=== PATIENT | female | born 1940 | race Hispanic/Latino ===

== ENCOUNTER 2016-03-10 16:07 | Inpatient (IN) | payer OTHER ==
[~2016-03-10] VITALS: Ht 157.5 cm; Wt 48.6 kg
[~2016-03-10 16:07] MED LIST: ATIVAN0.5 MG PO; CALCIUM500 M4 PO; CHOLESTEROL; COLACE100 MG PO; DRAMAMINE50 MG PO; GLIPIZIDE5 MG PO; GLYBURIDE5 MG PO; IBUPROFEN400 MG PO; LEVOTHYROXINE88 MCG PO; LEXAPRO10 MG PO; LIPITOR20 MG PO; LISINOPRIL10 MG PO; LITE COAT ASPI325 M1 PO; MAGIC MOUTHWASH; METFORMIN HCL1000 MG; METFORMIN HCL1000 MG PO; NEURONTIN300 MG PO; NORCO 5/3251 TABLET PO; PANTOPRAZOLE SO40 MG PO; PERCOCET 5/31 TABLET PO; POTASSIUM CHLO20 ME1 PO; PROCTOFOAM-HC10 GM PR; PROTONIX40 MG PO; ROXICODONE5 MG PO; SYNTHROID50 MCG PO; SYNTHROID88 MCG PO; TYLENOL EXTRA500 MG PO; TYLENOL WITH C1 EACH PO; ULTRAM50 MG PO; VICODIN 5-3001 EACH PO; ZESTORETIC 20-1 EAC1 PO; ZESTRIL,PRINIVI10 MG; ZOFRAN ODT4 MG PO
[2016-03-10 16:57] LABS: MCH 26.7 PG (29.0-34.0); MCHC 31.6 G/DL (30.0-36.0); MCV 84.5 FL (83-99); PLATELET COUNT 172 K/uL (156-360); RBC DIS.WIDTH-CV 18.6 % (11.8-14.6); RED BLOOD COUNT 3.67 M/uL (3.80-5.20); WHITE BLOOD COUNT 5.6 K/uL (4.1-10.2)
[2016-03-10 17:07] LABS: CHLORIDE 101 mEq/L (99-109); POTASSIUM 4.9 mEq/L (3.7-5.4); SODIUM 134 mEq/L (136-147)
[2016-03-10 17:09] LABS: GLUCOSE 247 mg/dL (70-99)
[2016-03-10 17:10] LABS: ANION GAP 10 MEQ/L (2-14)
[2016-03-10 17:13] LABS: GFR ESTIMATE (CALCULATED) > 59 mL/min/; UREA NITROGEN (BUN) 4 mg/dL (9-23)
[2016-03-10 18:54] LABS: ADD MIUA? YES; BILIRUBIN NEGATIVE; BLOOD NEGATIVE; COLOR YELLOW ((YELLOW)); GLUCOSE (STRIP) NEGATIVE; KETONES NEGATIVE; LEUKOCYTES SMALL; PROTEIN (STRIP) NEGATIVE; SPECIFIC GRAVITY 1.011 (1.000-1.030); UROBILINOGEN 0.2 MG/DL (0.2-1.0)
[2016-03-10 19:46] LABS: BACTERIA 3+; RED BLOOD CELLS 0-5 /HPF (0-5); UCUL ADDED? YES
[2016-03-10 19:47] LABS: CASTS NONE SEEN /LPF; CRYSTALS NONE SEEN; EPITHELIAL CELLS NONE SEEN; MUCUS NONE SEEN; NITRITE POSITIVE
[2016-03-10 22:58] LABS: HEMATOCRIT 28.1 % (36.0-46.0); MCH 26.3 PG (29.0-34.0); MCHC 31.3 G/DL (30.0-36.0); MCV 84.1 FL (83-99); PLATELET COUNT 151 K/uL (156-360); RBC DIS.WIDTH-CV 18.7 % (11.8-14.6); RBC DIS.WIDTH-SD 56.1 % (39-53); RED BLOOD COUNT 3.34 M/uL (3.80-5.20); WHITE BLOOD COUNT 5.2 K/uL (4.1-10.2)
[2016-03-11] VITALS (7 sets, daily range): BP systolic 124–167; BP diastolic 59–71
[2016-03-11 01:38] LABS: INTER. NORMALIZED RATIO 1.2; PROTHROMBIN TIME 12.5 (9.2-11.2); PTT 30.4 (25-32)
[2016-03-11 07:22] LABS: HEMATOCRIT 28.6 % (36.0-46.0); MCH 26.5 PG (29.0-34.0); MCHC 31.5 G/DL (30.0-36.0); MCV 84.1 FL (83-99); MEAN PLAT.VOLUME 10.7 uM^3 (9.5-12.4); PLATELET COUNT 155 K/uL (156-360); RBC DIS.WIDTH-CV 18.9 % (11.8-14.6); RBC DIS.WIDTH-SD 58.1 % (39-53); WHITE BLOOD COUNT 6.4 K/uL (4.1-10.2)
[2016-03-11 07:36] LABS: ANION GAP 8 MEQ/L (2-14); CHLORIDE 101 MEQ/L (99-109); GFR ESTIMATE (CALCULATED) > 59 mL/min/; SAMPLE HEMOLYSIS CHECK 0; SAMPLE ICTERIC CHECK 0; SAMPLE LIPEMIA CHECK 0; SODIUM 134 MEQ/L (136-147); UREA NITROGEN (BUN) 4 mg/dL (9-23)
[2016-03-11 07:38] LABS: GLUCOSE 116 mg/dL (70-99)
[2016-03-11 11:41] LABS: POINT-OF-CARE METER ID UU14149397
[2016-03-11 16:14] LABS: POINT-OF-CARE METER ID UU13113694
[2016-03-11 18:41] LABS: POINT-OF-CARE METER ID UU14149397
[2016-03-11 19:36] LABS: HEMATOCRIT 28.9 % (36.0-46.0); MCH 26.9 PG (29.0-34.0); MCHC 32.2 G/DL (30.0-36.0); MCV 83.5 FL (83-99); MEAN PLAT.VOLUME 11.6 uM^3 (9.5-12.4); PLATELET COUNT 159 K/uL (156-360); RBC DIS.WIDTH-SD 58.2 % (39-53); RED BLOOD COUNT 3.46 M/uL (3.80-5.20)
[2016-03-11 19:42] LABS: WHITE BLOOD COUNT 4.1 K/uL (4.1-10.2)
[2016-03-11 21:53] LABS: POINT-OF-CARE METER ID UU14149397
[2016-03-12] VITALS (7 sets, daily range): BP systolic 138–159; BP diastolic 64–76
[2016-03-12 06:00] LABS: HEMATOCRIT 26.4 % (36.0-46.0); MCH 26.3 PG (29.0-34.0); MCHC 31.4 G/DL (30.0-36.0); MCV 83.8 FL (83-99); MEAN PLAT.VOLUME 10.9 uM^3 (9.5-12.4); PLATELET COUNT 139 K/uL (156-360); RBC DIS.WIDTH-SD 58.1 % (39-53); RED BLOOD COUNT 3.15 M/uL (3.80-5.20); WHITE BLOOD COUNT 4.5 K/uL (4.1-10.2)
[2016-03-12 06:04] LABS: EOSINOPHIL (%) 2.6 % (0-5); EOSINOPHIL COUNT 0.1 K/uL (0-0.3); IMMATURE GRANULOCYTE (%) 0.2 % (0.0-0.7); LYMPHOCYTE COUNT 1.5 K/uL (1.0-2.8); MONOCYTE (%) 12.1 % (3-12); MONOCYTE COUNT 0.6 K/uL (0-0.8); NEUTROPHIL COUNT 2.4 K/uL (1.8-6.4)
[2016-03-12 06:29] LABS: ANION GAP 7 MEQ/L (2-14); CHLORIDE 103 MEQ/L (99-109); GFR ESTIMATE (CALCULATED) > 59 mL/min/; POTASSIUM 3.9 MEQ/L (3.7-5.4); SAMPLE HEMOLYSIS CHECK 0; SAMPLE ICTERIC CHECK 0; SAMPLE LIPEMIA CHECK 0; SODIUM 135 MEQ/L (136-147); UREA NITROGEN (BUN) 5 mg/dL (9-23)
[2016-03-12 06:38] LABS: GLUCOSE 85 mg/dL (70-99)
[2016-03-12 18:04] LABS: HEMATOCRIT 32.7 % (36.0-46.0); MCV 84.1 FL (83-99)
[2016-03-12] MEDS ORDERED: AMPICILLIN TRI500 MG PO (19:06)
[2016-03-12] MEDS ORDERED: POLYETHYLENE GL17 GM PO (19:07)
[2016-03-12] MEDS ORDERED: METFORMIN HCL1000 MG PO (19:08)
== END 2016-03-12 21:27 | disposition home or self-care (01) | DRG 394 ==
LOC: EME 16:07 → EDOF 22:02 → 3EAST 22:02
PROVIDERS: Emergency Medicine; Family Medicine; Family Medicine Sports Medicine; Specialist
DX: K55.8 Other vascular disorders of intestine (principal); K64.8 Other hemorrhoids; I85.00 Esophageal varices without bleeding; B37.81 Candidal esophagitis; Z85.09 Personal history of malignant neoplasm of other digestive organs; C79.51 Secondary malignant neoplasm of bone; C78.7 Secondary malignant neoplasm of liver and intrahepatic bile duct; N39.0 Urinary tract infection, site not specified; B96.20 Unspecified Escherichia coli [E. coli] as the cause of diseases classified elsewhere; K29.70 Gastritis, unspecified, without bleeding; K31.7 Polyp of stomach and duodenum; K76.6 Portal hypertension; K74.60 Unspecified cirrhosis of liver; D50.0 Iron deficiency anemia secondary to blood loss (chronic); D63.0 Anemia in neoplastic disease; R10.84 Generalized abdominal pain; E87.6 Hypokalemia; I10 Essential (primary) hypertension; E03.9 Hypothyroidism, unspecified; E78.5 Hyperlipidemia, unspecified; K21.9 Gastro-esophageal reflux disease without esophagitis; E11.9 Type 2 diabetes mellitus without complications; F32.9 Major depressive disorder, single episode, unspecified; M81.0 Age-related osteoporosis without current pathological fracture; Z79.84 Long term (current) use of oral hypoglycemic drugs; Z79.899 Other long term (current) drug therapy
CPT/HCPCS: 36415; 71010; 74177; 80048; 80053; 81003; 82150; 82948; 85007; 85014; 85018; 85025; 85027; 85045; 85378; 85384; 85610; 85610 GA; 85730; 85730 GA; 86850; 86900; 86901; 86920; 87077; 87086; 87186; 93005; 99281; 99285; B4087; C9113; J0696; J1815; J2250; J2270; J3010; J7030; J7050; P9016

== ENCOUNTER 2016-03-15 12:31 | Emergency (ER) | payer OTHER ==
[~2016-03-15] VITALS: Ht 152.4 cm; Wt 47.8 kg
[~2016-03-15 12:31] MED LIST changes: +AMPICILLIN TRI500 MG PO; +POLYETHYLENE GL17 GM PO
[2016-03-15 13:02] LABS: HEMATOCRIT 31.2 % (36.0-46.0); MCH 27.1 PG (29.0-34.0); MCHC 31.7 G/DL (30.0-36.0); MCV 85.5 FL (83-99); MEAN PLAT.VOLUME 10.7 uM^3 (9.5-12.4); PLATELET COUNT 170 K/uL (156-360); RBC DIS.WIDTH-CV 18.1 % (11.8-14.6); RBC DIS.WIDTH-SD 54.9 % (39-53); RED BLOOD COUNT 3.65 M/uL (3.80-5.20)
[2016-03-15 13:08] LABS: CHLORIDE 100 mEq/L (99-109); SODIUM 132 mEq/L (136-147)
[2016-03-15 13:09] LABS: POTASSIUM 4.9 mEq/L (3.7-5.4)
[2016-03-15 13:11] LABS: GLUCOSE 195 mg/dL (70-99)
[2016-03-15 13:12] LABS: ANION GAP 8 MEQ/L (2-14); INTER. NORMALIZED RATIO 1.2; PROTHROMBIN TIME 12.1 (9.2-11.2)
[2016-03-15 13:14] LABS: ALKALINE PHOSPHATASE 277 IU/L (3-129); GFR ESTIMATE (CALCULATED) > 59 mL/min/
[2016-03-15 13:16] LABS: DIRECT BILIRUBIN 0.6 mg/dL (0.0-0.3); UREA NITROGEN (BUN) 6 mg/dL (9-23)
[2016-03-15 13:53] LABS: LIPASE 62 U/L (1.0-51.0)
[2016-03-15 13:57] LABS: WHITE BLOOD COUNT 6.5 K/uL (4.1-10.2)
[2016-03-15 14:18] LABS: ADD MIUA? YES; BILIRUBIN NEGATIVE; BLOOD SMALL; COLOR YELLOW ((YELLOW)); GLUCOSE (STRIP) NEGATIVE; KETONES NEGATIVE; LEUKOCYTES TRACE; NITRITE NEGATIVE; PROTEIN (STRIP) TRACE; SPECIFIC GRAVITY 1.012 (1.000-1.030); UROBILINOGEN 0.2 MG/DL (0.2-1.0)
[2016-03-15 14:44] LABS: BACTERIA RARE /HPF; CASTS NONE SEEN /LPF; CRYSTALS NONE SEEN; EPITHELIAL CELLS NONE SEEN /HPF; MUCUS NONE SEEN /LPF; RED BLOOD CELLS 0-5 /HPF (0-5); UCUL ADDED? NO
[2016-03-15 17:41] VITALS: BP 150/65
== END 2016-03-15 18:14 | disposition home or self-care (01) ==
LOC: EME 12:31
PROVIDERS: Emergency Medicine; Physician Assistant
DX: K92.2 Gastrointestinal hemorrhage, unspecified (principal); I10 Essential (primary) hypertension; K21.9 Gastro-esophageal reflux disease without esophagitis; Z85.07 Personal history of malignant neoplasm of pancreas; Z85.038 Personal history of other malignant neoplasm of large intestine
CPT/HCPCS: 80048; 80076; 81003; 83690; 85027; 85610; 86850; 86900; 86901; 99281; 99284; J7030

== ENCOUNTER 2016-05-16 15:00 | Inpatient (IN) | payer OTHER ==
[~2016-05-16] VITALS: Ht 160 cm; Wt 47.5 kg
[2016-05-16 17:41] LABS: HEMATOCRIT 38.7 % (36.0-46.0); MCH 28.1 PG (29.0-34.0); MCHC 30.7 G/DL (30.0-36.0); MCV 91.3 FL (83-99); MEAN PLAT.VOLUME 11.9 uM^3 (9.5-12.4); PLATELET COUNT 121 K/uL (156-360); RBC DIS.WIDTH-CV 19.6 % (11.8-14.6); RBC DIS.WIDTH-SD 65.8 % (39-53); RED BLOOD COUNT 4.24 M/uL (3.80-5.20); WHITE BLOOD COUNT 6.1 K/uL (4.1-10.2)
[2016-05-16 17:49] LABS: CHLORIDE 102 mEq/L (99-109); POTASSIUM 4.6 mEq/L (3.7-5.4); SODIUM 135 mEq/L (136-147)
[2016-05-16 17:50] LABS: GLUCOSE 337 mg/dL (70-99)
[2016-05-16 17:52] LABS: ANION GAP 9 MEQ/L (2-14)
[2016-05-16 17:54] LABS: GFR ESTIMATE (CALCULATED) > 59 mL/min/
[2016-05-16 17:55] LABS: UREA NITROGEN (BUN) 4 mg/dL (9-23)
[2016-05-16 18:06] LABS: ADD MIUA? YES; BILIRUBIN NEGATIVE; BLOOD NEGATIVE; COLOR YELLOW ((YELLOW)); GLUCOSE (STRIP) >=500; KETONES NEGATIVE; LEUKOCYTES NEGATIVE; NITRITE POSITIVE; PROTEIN (STRIP) NEGATIVE; SPECIFIC GRAVITY 1.007 (1.000-1.030); UROBILINOGEN 0.2 MG/DL (0.2-1.0)
[2016-05-16 18:20] LABS: BACTERIA 2+ /HPF; EPITHELIAL CELLS RARE /HPF; MUCUS NONE SEEN /LPF; RED BLOOD CELLS 0-5 /HPF (0-5); WHITE BLOOD CELLS 0-5 /HPF (0-5)
[2016-05-17 00:06] VITALS: BP 146/68
[2016-05-17 03:51] VITALS: BP 161/75
[2016-05-17 06:15] LABS: ANION GAP 7 MEQ/L (2-14); CHLORIDE 98 MEQ/L (99-109); GFR ESTIMATE (CALCULATED) > 59 mL/min/; GLUCOSE 361 mg/dL (70-99); POTASSIUM 4.4 MEQ/L (3.7-5.4); SAMPLE HEMOLYSIS CHECK 0; SAMPLE ICTERIC CHECK 0; SAMPLE LIPEMIA CHECK 0; SODIUM 131 MEQ/L (136-147); UREA NITROGEN (BUN) 6 mg/dL (9-23)
[2016-05-17 06:29] LABS: HEMATOCRIT 35.4 % (36.0-46.0); MCHC 31.4 G/DL (30.0-36.0); MCV 89.2 FL (83-99); MEAN PLAT.VOLUME 11.4 uM^3 (9.5-12.4); PLATELET COUNT 105 K/uL (156-360); RBC DIS.WIDTH-CV 19.4 % (11.8-14.6); RBC DIS.WIDTH-SD 63.4 % (39-53); RED BLOOD COUNT 3.97 M/uL (3.80-5.20); WHITE BLOOD COUNT 4.7 K/uL (4.1-10.2)
[2016-05-17 07:38] VITALS: BP 153/65
[2016-05-17 11:31] VITALS: BP 148/68
[2016-05-17 15:49] VITALS: BP 138/65
[2016-05-18] VITALS (7 sets, daily range): BP systolic 130–157; BP diastolic 64–82
[2016-05-18 12:08] LABS: POINT-OF-CARE METER ID UU14149397
[2016-05-19 06:29] LABS: POINT-OF-CARE USER ID STWHLR41
[2016-05-19 07:21] LABS: EOSINOPHIL COUNT 0.2 K/uL (0-0.3); HEMATOCRIT 38.9 % (36.0-46.0); IMMATURE GRANULOCYTE (%) 0.9 % (0.0-0.7); IMMATURE GRANULOCYTE COUNT 0.1 K/uL; INSTRUMENT ABS NEUTROPHIL CT 4.1 K/uL; LYMPHOCYTE COUNT 1.5 K/uL (1.0-2.8); MCH 28.5 PG (29.0-34.0); MCHC 30.8 G/DL (30.0-36.0); MCV 92.4 FL (83-99); MONOCYTE (%) 9.3 % (3-12); MONOCYTE COUNT 0.6 K/uL (0-0.8); NEUTROPHIL (%) 63.7 % (45-76); NEUTROPHIL COUNT 4.1 K/uL (1.8-6.4); PLATELET COUNT 120 K/uL (156-360); RBC DIS.WIDTH-CV 19.9 % (11.8-14.6); RBC DIS.WIDTH-SD 67.3 % (39-53); RED BLOOD COUNT 4.21 M/uL (3.80-5.20)
[2016-05-19 07:32] LABS: WHITE BLOOD COUNT 6.4 K/uL (4.1-10.2)
[2016-05-19 07:34] LABS: ANION GAP 5 MEQ/L (2-14); CHLORIDE 100 MEQ/L (99-109); GFR ESTIMATE (CALCULATED) > 59 mL/min/; POTASSIUM 3.9 MEQ/L (3.7-5.4); SAMPLE HEMOLYSIS CHECK 0; SAMPLE ICTERIC CHECK 0; SAMPLE LIPEMIA CHECK 0; UREA NITROGEN (BUN) 8 mg/dL (9-23)
[2016-05-19 07:37] LABS: GLUCOSE 121 mg/dL (70-99); SODIUM 138 MEQ/L (136-147)
[2016-05-19 08:00] VITALS: BP 122/70
[2016-05-19 12:02] LABS: POINT-OF-CARE METER ID UU14188577
[2016-05-19 16:00] VITALS: BP 120/80
[2016-05-19 19:33] LABS: POINT-OF-CARE USER ID STWHLR41
[2016-05-20] VITALS: BP 124/79
[2016-05-20 06:04] LABS: ANION GAP 6 MEQ/L (2-14); CHLORIDE 96 MEQ/L (99-109); GFR ESTIMATE (CALCULATED) > 59 mL/min/; POTASSIUM 3.9 MEQ/L (3.7-5.4); SAMPLE HEMOLYSIS CHECK 0; SAMPLE ICTERIC CHECK 0; SAMPLE LIPEMIA CHECK 0; SODIUM 132 MEQ/L (136-147); UREA NITROGEN (BUN) 8 mg/dL (9-23)
[2016-05-20 06:05] LABS: GLUCOSE 243 mg/dL (70-99)
[2016-05-20 06:32] LABS: EOSINOPHIL (%) 0.4 % (0-5); HEMATOCRIT 36.6 % (36.0-46.0); IMMATURE GRANULOCYTE (%) 1.1 % (0.0-0.7); IMMATURE GRANULOCYTE COUNT 0.1 K/uL; INSTRUMENT ABS NEUTROPHIL CT 3.1 K/uL; LYMPHOCYTE COUNT 0.9 K/uL (1.0-2.8); MCH 28.7 PG (29.0-34.0); MCHC 31.4 G/DL (30.0-36.0); MCV 91.3 FL (83-99); MEAN PLAT.VOLUME 12.4 uM^3 (9.5-12.4); MONOCYTE (%) 8.2 % (3-12); MONOCYTE COUNT 0.4 K/uL (0-0.8); NEUTROPHIL (%) 69.6 % (45-76); NEUTROPHIL COUNT 3.1 K/uL (1.8-6.4); NRBC (%) 0.4 /100 WBC (0-0); PLATELET COUNT 111 K/uL (156-360); RBC DIS.WIDTH-CV 19.1 % (11.8-14.6); RBC DIS.WIDTH-SD 63.7 % (39-53); RED BLOOD COUNT 4.01 M/uL (3.80-5.20); WHITE BLOOD COUNT 4.5 K/uL (4.1-10.2)
[2016-05-20 10:40] VITALS: BP 123/72
[2016-05-20 11:53] LABS: POINT-OF-CARE METER ID UU14188577
[2016-05-20 14:32] LABS: POINT-OF-CARE METER ID UU14149397; POINT-OF-CARE USER ID STWHLR41
[2016-05-20 14:52] LABS: POINT-OF-CARE METER ID UU14188577
[2016-05-20 16:54] VITALS: BP 140/88
[2016-05-20 23:42] VITALS: BP 168/76
[2016-05-21 06:08] LABS: ANION GAP 5 MEQ/L (2-14); CHLORIDE 96 MEQ/L (99-109); GFR ESTIMATE (CALCULATED) > 59 mL/min/; SAMPLE HEMOLYSIS CHECK 1; SAMPLE ICTERIC CHECK 0; SAMPLE LIPEMIA CHECK 0; SODIUM 136 MEQ/L (136-147); UREA NITROGEN (BUN) 7 mg/dL (9-23)
[2016-05-21 06:19] LABS: GLUCOSE 71 mg/dL (70-99); POTASSIUM 4.1 MEQ/L (3.7-5.4)
[2016-05-21 07:09] LABS: EOSINOPHIL (%) 4.1 % (0-5); EOSINOPHIL COUNT 0.3 K/uL (0-0.3); HEMATOCRIT 38.8 % (36.0-46.0); IMMATURE GRANULOCYTE (%) 1.5 % (0.0-0.7); IMMATURE GRANULOCYTE COUNT 0.1 K/uL; INSTRUMENT ABS NEUTROPHIL CT 4.8 K/uL; LYMPHOCYTE COUNT 2.1 K/uL (1.0-2.8); MCH 28.6 PG (29.0-34.0); MCHC 31.2 G/DL (30.0-36.0); MCV 91.7 FL (83-99); MEAN PLAT.VOLUME 11.9 uM^3 (9.5-12.4); MONOCYTE (%) 9.9 % (3-12); MONOCYTE COUNT 0.8 K/uL (0-0.8); NEUTROPHIL (%) 58.7 % (45-76); NEUTROPHIL COUNT 4.8 K/uL (1.8-6.4); NRBC (%) 0.6 /100 WBC (0-0); RBC DIS.WIDTH-SD 63.6 % (39-53); RED BLOOD COUNT 4.23 M/uL (3.80-5.20)
[2016-05-21 07:10] LABS: PLATELET COUNT 147 K/uL (156-360); WHITE BLOOD COUNT 8.1 K/uL (4.1-10.2)
[2016-05-21 08:29] VITALS: BP 151/68
[2016-05-21 16:38] VITALS: BP 161/70
[2016-05-21] MEDS ORDERED: LISINOPRIL20 MG PO (18:40)
[2016-05-21] MEDS ORDERED: COMPAZINE10 MG PO (18:41)
[2016-05-21] MEDS ORDERED: NABI650T PO (18:41)
[2016-05-21] MEDS ORDERED: FENTANYL1 EAC2 TD (18:41)
[2016-05-21] MEDS ORDERED: OXYCODONE HCL5 MG PO (18:41)
[2016-05-21] MEDS ORDERED: ZOLPIDEM TARTRAT5 MG PO (18:41)
[2016-05-21] MEDS ORDERED: DOCUSATE SODIU100 MG PO (18:41)
[2016-05-21] MEDS ORDERED: NOVOLOG PE100 UNITS/ SC (18:42)
[2016-05-21] MEDS ORDERED: LEVEMIR100 UNIT/2 SC (18:42)
[2016-05-21] MEDS ORDERED: MACROBID100 MG PO ×2 (18:43→19:48)
== END 2016-05-21 20:44 | disposition home or self-care (01) | DRG 543 ==
LOC: EME 15:00 → 3EAST 21:59 → EDOF 21:59 → 3EAST 23:45
PROVIDERS: Family Medicine; Family Medicine Sports Medicine; Physician Assistant
DX: C79.51 Secondary malignant neoplasm of bone (principal); N39.0 Urinary tract infection, site not specified; C18.1 Malignant neoplasm of appendix; C78.7 Secondary malignant neoplasm of liver and intrahepatic bile duct; B96.20 Unspecified Escherichia coli [E. coli] as the cause of diseases classified elsewhere; E87.1 Hypo-osmolality and hyponatremia; D69.6 Thrombocytopenia, unspecified; D64.9 Anemia, unspecified; I10 Essential (primary) hypertension; E11.9 Type 2 diabetes mellitus without complications; M62.81 Muscle weakness (generalized); Z79.4 Long term (current) use of insulin; B37.3 Candidiasis of vulva and vagina; E78.5 Hyperlipidemia, unspecified; E03.9 Hypothyroidism, unspecified; G89.3 Neoplasm related pain (acute) (chronic); R42 Dizziness and giddiness; Z87.891 Personal history of nicotine dependence; R11.0 Nausea
CPT/HCPCS: 36415; 70553; 72146; 72156; 72157; 72158; 80048; 80053; 81003; 82378; 82948; 83690; 85025; 85027; 87077; 87086; 87186; 97530 GP; 99281; 99285; C9113; J0696; J1100; J1335; J1650; J1815; J2405; J3010; J7050; J7120; J8540; Q0164

== ENCOUNTER 2016-06-03 11:29 | Emergency (ER) | payer OTHER ==
[~2016-06-03] VITALS: Ht 160 cm; Wt 50.0 kg
[~2016-06-03 11:29] MED LIST changes: +COMPAZINE10 MG PO; +DOCUSATE SODIU100 MG PO; +FENTANYL1 EAC2 TD; +LEVEMIR100 UNIT/2 SC; +LISINOPRIL20 MG PO; +MACROBID100 MG PO; +NABI650T PO; +NOVOLOG PE100 UNITS/ SC; +OXYCODONE HCL5 MG PO; +ZOLPIDEM TARTRAT5 MG PO
[2016-06-03 13:12] LABS: EOSINOPHIL (%) 1.9 % (0-5); EOSINOPHIL COUNT 0.1 K/uL (0-0.3); HEMATOCRIT 37.7 % (36.0-46.0); IMMATURE GRANULOCYTE (%) 0.8 % (0.0-0.7); IMMATURE GRANULOCYTE COUNT 0.1 K/uL; INSTRUMENT ABS NEUTROPHIL CT 5.1 K/uL; LYMPHOCYTE COUNT 1.7 K/uL (1.0-2.8); MCH 29.1 PG (29.0-34.0); MCHC 31.8 G/DL (30.0-36.0); MCV 91.5 FL (83-99); MONOCYTE (%) 5.2 % (3-12); MONOCYTE COUNT 0.4 K/uL (0-0.8); NEUTROPHIL (%) 68.7 % (45-76); NEUTROPHIL COUNT 5.1 K/uL (1.8-6.4); PLATELET COUNT 164 K/uL (156-360); RBC DIS.WIDTH-CV 18.1 % (11.8-14.6); RED BLOOD COUNT 4.12 M/uL (3.80-5.20); WHITE BLOOD COUNT 7.4 K/uL (4.1-10.2)
[2016-06-03 13:25] LABS: ADD MIUA? YES; BILIRUBIN NEGATIVE; BLOOD NEGATIVE; COLOR YELLOW ((YELLOW)); GLUCOSE (STRIP) NEGATIVE; KETONES NEGATIVE; LEUKOCYTES TRACE; NITRITE NEGATIVE; PROTEIN (STRIP) NEGATIVE; SPECIFIC GRAVITY 1.004 (1.000-1.030); UROBILINOGEN 0.2 MG/DL (0.2-1.0)
[2016-06-03 13:28] LABS: CHLORIDE 101 mEq/L (99-109); POTASSIUM 4.2 mEq/L (3.7-5.4); SODIUM 136 mEq/L (136-147)
[2016-06-03 13:30] LABS: GLUCOSE 156 mg/dL (70-99)
[2016-06-03 13:32] LABS: ANION GAP 11 MEQ/L (2-14); TOTAL BILIRUBIN 1.4 mg/dL (0.0-1.0)
[2016-06-03 13:34] LABS: ALKALINE PHOSPHATASE 580 IU/L (3-129); GFR ESTIMATE (CALCULATED) > 59 mL/min/
[2016-06-03 13:35] LABS: UREA NITROGEN (BUN) 5 mg/dL (9-23)
[2016-06-03 13:40] LABS: BACTERIA RARE /HPF; EPITHELIAL CELLS RARE /HPF; MUCUS NONE SEEN /LPF; RED BLOOD CELLS 0-5 /HPF (0-5); UCUL ADDED? NO
[2016-06-03] MEDS ORDERED: PERCOCET 5/31 TABLET PO (15:45)
[2016-06-03 16:04] VITALS: BP 150/64
== END 2016-06-03 17:02 | disposition home or self-care (01) ==
LOC: EME 11:29
PROVIDERS: Emergency Medicine
DX: M54.41 Lumbago with sciatica, right side (principal); C25.9 Malignant neoplasm of pancreas, unspecified; C78.5 Secondary malignant neoplasm of large intestine and rectum; C79.51 Secondary malignant neoplasm of bone; I10 Essential (primary) hypertension; E11.9 Type 2 diabetes mellitus without complications; K21.9 Gastro-esophageal reflux disease without esophagitis; F32.9 Major depressive disorder, single episode, unspecified
CPT/HCPCS: 73502; 80053; 81003; 85025; 99281; 99285; J3010; J7030

== ENCOUNTER 2016-08-07 16:20 | Inpatient (IN) | payer OTHER ==
[~2016-08-07] VITALS: Ht 162.6 cm; Wt 53.3 kg
[2016-08-07 17:31] LABS: MEAN PLAT.VOLUME 11.1 uM^3 (9.5-12.4); NRBC (%) 5.5 /100 WBC (0-0); PLATELET COUNT 95 K/uL (156-360)
[2016-08-07 17:40] LABS: CHLORIDE 105 mEq/L (99-109); POTASSIUM 4.2 mEq/L (3.7-5.4); SODIUM 133 mEq/L (136-147)
[2016-08-07 17:43] LABS: GLUCOSE 73 mg/dL (70-99)
[2016-08-07 17:44] LABS: ANION GAP 5 MEQ/L (2-14); TOTAL BILIRUBIN 1.9 mg/dL (0.0-1.0)
[2016-08-07 17:46] LABS: ALKALINE PHOSPHATASE 421 IU/L (3-129); GFR ESTIMATE (CALCULATED) > 59 mL/min/
[2016-08-07 17:47] LABS: UREA NITROGEN (BUN) 12 mg/dL (9-23)
[2016-08-07 17:48] LABS: DIRECT BILIRUBIN 1.3 mg/dL (0.0-0.3)
[2016-08-07 17:50] LABS: LIPASE 36 U/L (1.0-51.0); TROP-I INTERPRETATION NEGATIVE; TROPONIN-I < 0.01 ng/mL (0.0-0.30)
[2016-08-07 17:59] LABS: HEMATOCRIT 27.6 % (36.0-46.0); MCH 35.4 PG (29.0-34.0); MCHC 31.5 G/DL (30.0-36.0); MCV 112.2 FL (83-99); RBC DIS.WIDTH-CV 19.1 % (11.8-14.6); RBC DIS.WIDTH-SD 77.9 % (39-53); RED BLOOD COUNT 2.46 M/uL (3.80-5.20); WHITE BLOOD COUNT 8.2 K/uL (4.1-10.2)
[2016-08-07] MEDS ORDERED: ZESTRIL20 MG PO (22:03)
[2016-08-07] MEDS ORDERED: ROXICODONE5 MG PO (22:05)
[2016-08-07] MEDS ORDERED: GLUCOTROL5 MG PO (22:06)
[2016-08-07] MEDS ORDERED: ESCITALOPRAM OX10 MG PO (22:06)
[2016-08-07] MEDS ORDERED: ZOFRAN4 MG PO (22:06)
[2016-08-07] MEDS ORDERED: NEURONTIN300 MG PO (22:07)
[2016-08-07] MEDS ORDERED: LIPITOR20 MG PO (22:07)
[2016-08-07] MEDS ORDERED: SYNTHROID88 MCG PO (22:08)
[2016-08-07] MEDS ORDERED: NADOLOL20 MG PO (22:08)
[2016-08-07] MEDS ORDERED: METFORMIN HCL1000 MG PO (22:09)
[2016-08-07] MEDS ORDERED: LORAZEPAM0.5 MG PO (22:09)
[2016-08-08] VITALS (7 sets, daily range): BP systolic 93–150; BP diastolic 48–78
[2016-08-08 07:00] LABS: HEMATOCRIT 25.2 % (36.0-46.0); MCH 35.7 PG (29.0-34.0); MCHC 31.7 G/DL (30.0-36.0); MCV 112.5 FL (83-99); MEAN PLAT.VOLUME 10.6 uM^3 (9.5-12.4); NRBC (%) 4.8 /100 WBC (0-0); PLATELET COUNT 87 K/uL (156-360); RBC DIS.WIDTH-CV 18.9 % (11.8-14.6); RBC DIS.WIDTH-SD 77.5 % (39-53); RED BLOOD COUNT 2.24 M/uL (3.80-5.20); WHITE BLOOD COUNT 6.3 K/uL (4.1-10.2)
[2016-08-08 07:24] LABS: ANION GAP 7 MEQ/L (2-14); CHLORIDE 106 MEQ/L (99-109); GFR ESTIMATE (CALCULATED) > 59 mL/min/; GLUCOSE 70 mg/dL (70-99); POTASSIUM 3.9 MEQ/L (3.7-5.4); SAMPLE HEMOLYSIS CHECK 0; SAMPLE ICTERIC CHECK 0; SAMPLE LIPEMIA CHECK 0; SODIUM 135 MEQ/L (136-147); UREA NITROGEN (BUN) 11 mg/dL (9-23)
[2016-08-08 08:11] LABS: ABS NEUTROPHIL COUNT 4.5; ANISOCYTOSIS 3+; ATYPICAL LYMPHOCYTE 0.9 %; BAND NEUTROPHILS 13.4 % (0-8.0); EOSINOPHIL ABS CT 0; INSTRUMENT ABS NEUTROPHIL CT 3.3 K/uL; LYMPHOCYTES 12.5 % (15.0-45.0); MACROCYTES 3+; METAMYELOCYTES 0.9 %; MYELOCYTES 3.6 %; NUCLEATED RBC'S 3.6; PLAT.SUFFICIENCY DECREASED; POIKILOCYTOSIS 1+; POLYCHROMASIA 1+; TEAR DROP CELLS 1+
[2016-08-08 17:01] LABS: POINT-OF-CARE METER ID UU13113725
[2016-08-08 21:17] LABS: POINT-OF-CARE METER ID UU13113725
[2016-08-09 03:28] VITALS: BP 117/56
[2016-08-09 06:40] LABS: HEMATOCRIT 24.8 % (36.0-46.0); MCH 35.6 PG (29.0-34.0); MCHC 31.5 G/DL (30.0-36.0); MCV 113.2 FL (83-99); MEAN PLAT.VOLUME 10.1 uM^3 (9.5-12.4); NRBC (%) 5.2 /100 WBC (0-0); PLATELET COUNT 69 K/uL (156-360); RBC DIS.WIDTH-CV 18.8 % (11.8-14.6); RBC DIS.WIDTH-SD 78.7 % (39-53); RED BLOOD COUNT 2.19 M/uL (3.80-5.20); WHITE BLOOD COUNT 4.6 K/uL (4.1-10.2)
[2016-08-09 07:08] LABS: ANION GAP 5 MEQ/L (2-14); CHLORIDE 105 MEQ/L (99-109); GFR ESTIMATE (CALCULATED) > 59 mL/min/; POTASSIUM 3.9 MEQ/L (3.7-5.4); SAMPLE HEMOLYSIS CHECK 0; SAMPLE ICTERIC CHECK 0; SAMPLE LIPEMIA CHECK 0; SODIUM 134 MEQ/L (136-147); UREA NITROGEN (BUN) 16 mg/dL (9-23)
[2016-08-09 07:10] LABS: GLUCOSE 101 mg/dL (70-99)
[2016-08-09 07:26] LABS: ABS NEUTROPHIL COUNT 3.1; ANISOCYTOSIS 3+; BAND NEUTROPHILS 1.8 % (0-8.0); EOSINOPHIL ABS CT 0.1; EOSINOPHILS 2.7 % (0-5.0); INSTRUMENT ABS NEUTROPHIL CT 2.3 K/uL; LYMPHOCYTES 21.6 % (15.0-45.0); MACROCYTES 3+; METAMYELOCYTES 1.8 %; MICROCYTOSIS 1+; MYELOCYTES 0.9 %; NUCLEATED RBC'S 2.7; PLAT.SUFFICIENCY DECREASED; POLYCHROMASIA 1+; SCHISTOCYTES 1+; SEG.NEUTROPHILS 65.8 % (46.0-76.0)
[2016-08-09 07:32] VITALS: BP 100/50
[2016-08-09 12:00] VITALS: BP 104/58
[2016-08-09 20:00] VITALS: BP 114/55
[2016-08-09 22:41] VITALS: BP 142/62
[2016-08-10 02:43] VITALS: BP 124/56
[2016-08-10 06:00] LABS: POINT-OF-CARE METER ID UU13113725
[2016-08-10 08:01] VITALS: BP 95/52
[2016-08-10 11:53] VITALS: BP 100/62
[2016-08-10 15:42] VITALS: BP 121/57
[2016-08-10 15:43] LABS: POINT-OF-CARE METER ID UU13113725
[2016-08-10 19:02] VITALS: BP 121/666
[2016-08-10 22:55] VITALS: BP 123/70
[2016-08-11 02:35] VITALS: BP 137/65
[2016-08-11 07:10] LABS: HEMATOCRIT 23.9 % (36.0-46.0); MCH 35.8 PG (29.0-34.0); MCHC 31.8 G/DL (30.0-36.0); MCV 112.7 FL (83-99); MEAN PLAT.VOLUME 9.8 uM^3 (9.5-12.4); NRBC (%) 4.8 /100 WBC (0-0); PLATELET COUNT 62 K/uL (156-360); RBC DIS.WIDTH-CV 18.6 % (11.8-14.6); RBC DIS.WIDTH-SD 76.8 % (39-53); RED BLOOD COUNT 2.12 M/uL (3.80-5.20); WHITE BLOOD COUNT 5.6 K/uL (4.1-10.2)
[2016-08-11 07:33] LABS: ANION GAP 5 MEQ/L (2-14); CHLORIDE 108 MEQ/L (99-109); GFR ESTIMATE (CALCULATED) > 59 mL/min/; GLUCOSE 146 mg/dL (70-99); POTASSIUM 4.1 MEQ/L (3.7-5.4); SAMPLE HEMOLYSIS CHECK 0; SAMPLE ICTERIC CHECK 0; SAMPLE LIPEMIA CHECK 0; SODIUM 136 MEQ/L (136-147); UREA NITROGEN (BUN) 9 mg/dL (9-23)
[2016-08-11 07:39] VITALS: BP 132/65
[2016-08-11 08:22] LABS: ABS NEUTROPHIL COUNT 3.8; ANISOCYTOSIS 2+; BAND NEUTROPHILS 4.5 % (0-8.0); EOSINOPHIL ABS CT 0.1; EOSINOPHILS 1.8 % (0-5.0); INSTRUMENT ABS NEUTROPHIL CT 2.7 K/uL; LYMPHOCYTES 18.7 % (15.0-45.0); MACROCYTES 2+; METAMYELOCYTES 0.9 %; MYELOCYTES 0.9 %; NUCLEATED RBC'S 8.9; PLAT.SUFFICIENCY DECREASED; POIKILOCYTOSIS 1+; POLYCHROMASIA 1+; SEG.NEUTROPHILS 63.4 % (46.0-76.0)
[2016-08-11 11:59] VITALS: BP 143/66
[2016-08-11 12:13] LABS: POINT-OF-CARE METER ID UU13113725
[2016-08-11 15:56] VITALS: BP 135/66
[2016-08-11 20:08] VITALS: BP 152/74
[2016-08-11 23:39] VITALS: BP 146/73
[2016-08-12 04:37] VITALS: BP 129/63
[2016-08-12 05:53] LABS: POINT-OF-CARE METER ID UU13113725
[2016-08-12 06:13] LABS: HEMATOCRIT 26.4 % (36.0-46.0); MCH 35.2 PG (29.0-34.0); MCHC 31.4 G/DL (30.0-36.0); MCV 111.9 FL (83-99); MEAN PLAT.VOLUME 9.9 uM^3 (9.5-12.4); NRBC (%) 3.8 /100 WBC (0-0); PLATELET COUNT 58 K/uL (156-360); RBC DIS.WIDTH-CV 18.9 % (11.8-14.6); RBC DIS.WIDTH-SD 75.9 % (39-53); RED BLOOD COUNT 2.36 M/uL (3.80-5.20); WHITE BLOOD COUNT 5.7 K/uL (4.1-10.2)
[2016-08-12 06:33] LABS: IRON 58 MCG/DL (35-150)
[2016-08-12 07:28] LABS: ABS NEUTROPHIL COUNT 3.8; ANISOCYTOSIS 3+; ATYPICAL LYMPHOCYTE 0.9 %; BAND NEUTROPHILS 1.8 % (0-8.0); BURR CELLS 1+; EOSINOPHIL ABS CT 0.1; EOSINOPHILS 2.6 % (0-5.0); HELMET CELLS 1+; LYMPHOCYTES 20.2 % (15.0-45.0); MACROCYTES 3+; METAMYELOCYTES 3.5 %; MYELOCYTES 6.1 %; NUCLEATED RBC'S 3.5; PLAT.SUFFICIENCY DECREASED; POIKILOCYTOSIS 1+; POLYCHROMASIA 2+; STOMATOCYTES 1+; TEAR DROP CELLS 1+
[2016-08-12 08:08] VITALS: BP 130/63
[2016-08-12 11:49] LABS: POINT-OF-CARE METER ID UU13113725
[2016-08-12 14:59] VITALS: BP 109/83
[2016-08-12 15:54] LABS: POINT-OF-CARE METER ID UU13113725
[2016-08-12 20:45] VITALS: BP 130/60
[2016-08-12 20:50] LABS: POINT-OF-CARE METER ID UU13113725
[2016-08-13] VITALS: BP 134/65
[2016-08-13 04:20] VITALS: BP 132/65
[2016-08-13 07:32] VITALS: BP 140/66
[2016-08-13 10:51] LABS: INTER. NORMALIZED RATIO 1.4; PROTHROMBIN TIME 14.6 (9.2-11.2); PTT 28.2 (25-32)
[2016-08-13 11:05] VITALS: BP 120/56
[2016-08-13 13:05] LABS: TYPE OF FLUID PARACENTESIS
[2016-08-13 13:50] LABS: BODY FLUID LDH 77 IU/L
[2016-08-13 13:51] LABS: BODY FLUID PROTEIN < 3.0 G/DL
[2016-08-13 13:59] LABS: BODY FLUID EOSINOPHILS 0 % (0-25); BODY FLUID RBC'S 1000 /MM^3 (0-100); BODY FLUID WBC'S 67 /MM^3 (0-500); MONONUCLEAR WBC'S 91 %; POLYNUCLEAR WBC'S 9 % (0-25)
[2016-08-13 15:18] VITALS: BP 132/62
[2016-08-13 20:40] VITALS: BP 99/50
[2016-08-14] VITALS (16 sets, daily range): BP systolic 93–118; BP diastolic 50–67
[2016-08-14 06:32] LABS: HEMATOCRIT 20.1 % (36.0-46.0); MCH 35.2 PG (29.0-34.0); MCHC 31.3 G/DL (30.0-36.0); MCV 112.3 FL (83-99); MEAN PLAT.VOLUME 11.4 uM^3 (9.5-12.4); NRBC (%) 4.6 /100 WBC (0-0); PLATELET COUNT 63 K/uL (156-360); RBC DIS.WIDTH-CV 18.6 % (11.8-14.6); RBC DIS.WIDTH-SD 75.7 % (39-53); WHITE BLOOD COUNT 6.2 K/uL (4.1-10.2)
[2016-08-14 06:35] LABS: RED BLOOD COUNT 1.79 M/uL (3.80-5.20)
[2016-08-14 07:44] LABS: ABS NEUTROPHIL COUNT 4.3; ANISOCYTOSIS 2+; ATYPICAL LYMPHOCYTE 0.9 %; BAND NEUTROPHILS 2.7 % (0-8.0); EOSINOPHIL ABS CT 0.2; EOSINOPHILS 2.7 % (0-5.0); MACROCYTES 2+; METAMYELOCYTES 5.3 %; MICROCYTOSIS 1+; MYELOCYTES 3.6 %; NUCLEATED RBC'S 4.5; OVALOCYTES 1+; PLAT.SUFFICIENCY DECREASED; POLYCHROMASIA 2+; SEG.NEUTROPHILS 66.9 % (46.0-76.0)
[2016-08-14 08:02] LABS: ANION GAP 7 MEQ/L (2-14); CHLORIDE 105 MEQ/L (99-109); GFR ESTIMATE (CALCULATED) > 59 mL/min/; GLUCOSE 133 mg/dL (70-99); POTASSIUM 4.8 MEQ/L (3.7-5.4); SAMPLE HEMOLYSIS CHECK 0; SAMPLE ICTERIC CHECK 0; SAMPLE LIPEMIA CHECK 0; SODIUM 137 MEQ/L (136-147); UREA NITROGEN (BUN) 14 mg/dL (9-23)
[2016-08-14 12:06] LABS: POINT-OF-CARE METER ID UU13113725
[2016-08-14 22:18] LABS: POINT-OF-CARE METER ID UU13113725
[2016-08-15 02:44] LABS: BODY FLUID PH 7.9 (())
[2016-08-15 08:27] VITALS: BP 118/57
[2016-08-15 10:24] LABS: POC NON-PRINT COM 1 ND
[2016-08-15 15:46] LABS: ABS NEUTROPHIL COUNT 5.8; ANISOCYTOSIS 2+; ATYPICAL LYMPHOCYTE 0.9 %; BAND NEUTROPHILS 12.4 % (0-8.0); BASOPHILS 0.9 %; EOSINOPHIL ABS CT 0.1; EOSINOPHILS 0.9 % (0-5.0); INSTRUMENT ABS NEUTROPHIL CT 4.3 K/uL; LYMPHOCYTES 13.3 % (15.0-45.0); MACROCYTES 2+; MCH 33.5 PG (29.0-34.0); MCHC 32.6 G/DL (30.0-36.0); MEAN PLAT.VOLUME 10.4 uM^3 (9.5-12.4); METAMYELOCYTES 2.6 %; MICROCYTOSIS 1+; MYELOCYTES 0.9 %; NRBC (%) 3.9 /100 WBC (0-0); NUCLEATED RBC'S 3.5; PLATELET COUNT 63 K/uL (156-360); POLYCHROMASIA 1+; SEG.NEUTROPHILS 62.8 % (46.0-76.0); TARGET CELLS 1+; TEAR DROP CELLS 1+; WHITE BLOOD COUNT 7.7 K/uL (4.1-10.2)
[2016-08-15 15:51] LABS: RED BLOOD COUNT 2.63 M/uL (3.80-5.20)
[2016-08-15 15:52] LABS: MCV 102.7 FL (83-99)
[2016-08-15 18:06] VITALS: BP 116/67
[2016-08-15 20:04] VITALS: BP 132/63
[2016-08-16 00:10] VITALS: BP 129/63
[2016-08-16 05:28] LABS: POINT-OF-CARE METER ID UU13113725
[2016-08-16 07:00] VITALS: BP 129/63
[2016-08-16 11:20] VITALS: BP 122/61
[2016-08-16 14:50] VITALS: BP 113/60
[2016-08-17 04:35] VITALS: BP 129/64
[2016-08-17 06:11] LABS: MCH 32.9 PG (29.0-34.0); MCHC 31.7 G/DL (30.0-36.0); MCV 103.6 FL (83-99); MEAN PLAT.VOLUME 11.4 uM^3 (9.5-12.4); NRBC (%) 3.4 /100 WBC (0-0); PLATELET COUNT 65 K/uL (156-360); RBC DIS.WIDTH-CV 19.8 % (11.8-14.6); RBC DIS.WIDTH-SD 75.5 % (39-53); WHITE BLOOD COUNT 7.8 K/uL (4.1-10.2)
[2016-08-17 06:21] LABS: POINT-OF-CARE METER ID UU13113725
[2016-08-17 06:42] LABS: ANION GAP 3 MEQ/L (2-14); CHLORIDE 100 MEQ/L (99-109); GFR ESTIMATE (CALCULATED) > 59 mL/min/; GLUCOSE 131 mg/dL (70-99); POTASSIUM 4.6 MEQ/L (3.7-5.4); SAMPLE HEMOLYSIS CHECK 0; SAMPLE ICTERIC CHECK 0; SAMPLE LIPEMIA CHECK 0; SODIUM 132 MEQ/L (136-147); UREA NITROGEN (BUN) 16 mg/dL (9-23)
[2016-08-17 07:02] LABS: ABS NEUTROPHIL COUNT 5.4; ANISOCYTOSIS 2+; ATYPICAL LYMPHOCYTE 1.8 %; BAND NEUTROPHILS 2.7 % (0-8.0); EOSINOPHIL ABS CT 0.1; EOSINOPHILS 1.8 % (0-5.0); LYMPHOCYTES 20.5 % (15.0-45.0); MACROCYTES 2+; METAMYELOCYTES 1.8 %; MYELOCYTES 3.5 %; NUCLEATED RBC'S 0.9; PLAT.SUFFICIENCY DECREASED; SMUDGE CELLS 25.9; TEAR DROP CELLS 1+
[2016-08-17 08:30] VITALS: BP 114/58
[2016-08-17 11:13] VITALS: BP 119/62
[2016-08-17 15:40] VITALS: BP 122/65
[2016-08-17 19:14] VITALS: BP 127/60
[2016-08-17 23:15] VITALS: BP 116/60
[2016-08-18 06:17] LABS: POINT-OF-CARE USER ID 610071303
[2016-08-18 06:32] LABS: HEMATOCRIT 27.7 % (36.0-46.0); MCH 33.7 PG (29.0-34.0); MCHC 32.9 G/DL (30.0-36.0); MCV 102.6 FL (83-99); MEAN PLAT.VOLUME 11.2 uM^3 (9.5-12.4); PLATELET COUNT 64 K/uL (156-360); RBC DIS.WIDTH-CV 19.2 % (11.8-14.6); RBC DIS.WIDTH-SD 71.9 % (39-53); WHITE BLOOD COUNT 6.6 K/uL (4.1-10.2)
[2016-08-18 06:37] LABS: INTER. NORMALIZED RATIO 1.5; PROTHROMBIN TIME 15.5 (9.2-11.2); PTT 32.3 (25-32)
[2016-08-18 06:49] LABS: ALKALINE PHOSPHATASE 400 IU/L (3-129); ANION GAP 2 MEQ/L (2-14); CHLORIDE 99 MEQ/L (99-109); GFR ESTIMATE (CALCULATED) > 59 mL/min/; GLUCOSE 122 mg/dL (70-99); POTASSIUM 4.5 MEQ/L (3.7-5.4); SAMPLE HEMOLYSIS CHECK 0; SAMPLE ICTERIC CHECK 0; SAMPLE LIPEMIA CHECK 0; SODIUM 132 MEQ/L (136-147); TOTAL BILIRUBIN 2.1 MG/DL (0.0-1.0); UREA NITROGEN (BUN) 15 mg/dL (9-23)
[2016-08-18 07:27] VITALS: BP 116/57
[2016-08-18 08:30] LABS: ABS NEUTROPHIL COUNT 4.7; ANISOCYTOSIS 2+; EOSINOPHIL ABS CT 0.2; EOSINOPHILS 3.5 % (0-5.0); INSTRUMENT ABS NEUTROPHIL CT 3.4 K/uL; LYMPHOCYTES 12.3 % (15.0-45.0); MACROCYTES 1+; METAMYELOCYTES 0.9 %; MICROCYTOSIS 1+; MYELOCYTES 6.1 %; NUCLEATED RBC'S 2.6; PLAT.SUFFICIENCY DECREASED; POLYCHROMASIA 2+; SEG.NEUTROPHILS 64.9 % (46.0-76.0); SMUDGE CELLS 40.4
[2016-08-18 11:40] LABS: POINT-OF-CARE METER ID UU13113725
[2016-08-18 12:24] VITALS: BP 103/52
[2016-08-18 16:01] VITALS: BP 109/62
[2016-08-18 20:48] VITALS: BP 119/60
[2016-08-18 21:15] LABS: POINT-OF-CARE METER ID UU13113725
[2016-08-19] VITALS (7 sets, daily range): BP systolic 103–159; BP diastolic 58–67
[2016-08-19 11:27] LABS: POINT-OF-CARE METER ID UU13113725
[2016-08-19 16:18] LABS: POINT-OF-CARE METER ID UU13113725
[2016-08-19 21:08] LABS: POINT-OF-CARE METER ID UU13113725
[2016-08-20 03:38] VITALS: BP 121/60
[2016-08-20 06:56] VITALS: BP 113/53
[2016-08-20 06:56] LABS: HEMATOCRIT 28.7 % (36.0-46.0); MCH 32.6 PG (29.0-34.0); MCHC 31.7 G/DL (30.0-36.0); MCV 102.9 FL (83-99); MEAN PLAT.VOLUME 10.5 uM^3 (9.5-12.4); NRBC (%) 3.6 /100 WBC (0-0); PLATELET COUNT 59 K/uL (156-360); RBC DIS.WIDTH-SD 71.6 % (39-53); RED BLOOD COUNT 2.79 M/uL (3.80-5.20)
[2016-08-20 07:12] LABS: INTER. NORMALIZED RATIO 1.4; PROTHROMBIN TIME 14.1 (9.2-11.2)
[2016-08-20 07:21] LABS: ANION GAP 4 MEQ/L (2-14); CHLORIDE 99 MEQ/L (99-109); GFR ESTIMATE (CALCULATED) > 59 mL/min/; GLUCOSE 113 mg/dL (70-99); POTASSIUM 5.3 MEQ/L (3.7-5.4); SAMPLE HEMOLYSIS CHECK 0; SAMPLE ICTERIC CHECK 0; SAMPLE LIPEMIA CHECK 0; SODIUM 133 MEQ/L (136-147); UREA NITROGEN (BUN) 14 mg/dL (9-23)
[2016-08-20 07:41] LABS: ABS NEUTROPHIL COUNT 4.8; ANISOCYTOSIS 2+; BAND NEUTROPHILS 7.2 % (0-8.0); EOSINOPHIL ABS CT 0; INSTRUMENT ABS NEUTROPHIL CT 3.7 K/uL; LYMPHOCYTES 19.6 % (15.0-45.0); MACROCYTES 2+; METAMYELOCYTES 2.7 %; MYELOCYTES 7.1 %; NUCLEATED RBC'S 2.7; PLAT.SUFFICIENCY DECREASED; POLYCHROMASIA 1+; SEG.NEUTROPHILS 61.6 % (46.0-76.0)
[2016-08-20 10:50] VITALS: BP 124/54
[2016-08-20 11:04] LABS: POINT-OF-CARE METER ID UU13113725
[2016-08-20 15:06] VITALS: BP 119/67
[2016-08-20] MEDS ORDERED: LORAZEPAM0.5 MG PO (16:29)
[2016-08-20] MEDS ORDERED: MORPHINE SULFAT15 M1 PO (16:29)
[2016-08-20] MEDS ORDERED: DOCUSATE SODIU100 MG PO (16:29)
[2016-08-20] MEDS ORDERED: OXYCODONE HCL5 MG PO (16:29)
[2016-08-20] MEDS ORDERED: NOVOLOG PE100 UNITS/ SC (16:29)
[2016-08-20 16:33] LABS: POINT-OF-CARE METER ID UU13113725
[2016-08-20 20:00] VITALS: BP 149/69
[2016-08-20 20:45] LABS: POINT-OF-CARE METER ID UU13113725
[2016-08-21 00:24] VITALS: BP 133/60
[2016-08-21 08:33] VITALS: BP 106/55
[2016-08-21 10:56] VITALS: BP 124/57
[2016-08-21 11:29] LABS: POINT-OF-CARE METER ID UU13113725
[2016-08-21 15:59] VITALS: BP 118/58
[2016-08-21 16:16] LABS: POINT-OF-CARE METER ID UU13113725
[2016-08-25] MEDS ORDERED: METFORMIN HCL1000 MG PO (13:32)
== END 2016-08-21 16:26 | DRG 947 ==
LOC: EME 16:20 → EDOF 20:50 → 5EAST 20:50
PROVIDERS: Emergency Medicine; Family Medicine; Family Medicine Sports Medicine; Radiology Diagnostic Radiology
PROC: 0W9G3ZX Drainage of Peritoneal Cavity, Percutaneous Approach, Diagnostic (ICD-10-PCS; principal; 2016-08-13)
PROC: 30233N1 Transfusion of Nonautologous Red Blood Cells into Peripheral Vein, Percutaneous Approach (ICD-10-PCS; 2016-08-14)
PROC: 0W9G3ZZ Drainage of Peritoneal Cavity, Percutaneous Approach (ICD-10-PCS; 2016-08-17)
DX: G89.3 Neoplasm related pain (acute) (chronic) (principal); J18.9 Pneumonia, unspecified organism; R18.8 Other ascites; C79.51 Secondary malignant neoplasm of bone; C78.7 Secondary malignant neoplasm of liver and intrahepatic bile duct; C78.5 Secondary malignant neoplasm of large intestine and rectum; E87.1 Hypo-osmolality and hyponatremia; F33.9 Major depressive disorder, recurrent, unspecified; K92.1 Melena; Z51.5 Encounter for palliative care; I10 Essential (primary) hypertension; E11.9 Type 2 diabetes mellitus without complications; D69.6 Thrombocytopenia, unspecified; E03.9 Hypothyroidism, unspecified; E78.5 Hyperlipidemia, unspecified; K21.9 Gastro-esophageal reflux disease without esophagitis; R09.02 Hypoxemia; K74.60 Unspecified cirrhosis of liver; E87.70 Fluid overload, unspecified; D63.0 Anemia in neoplastic disease; F41.9 Anxiety disorder, unspecified; R53.1 Weakness; R26.2 Difficulty in walking, not elsewhere classified; Z68.20 Body mass index [BMI] 20.0-20.9, adult; Z79.84 Long term (current) use of oral hypoglycemic drugs; Z85.038 Personal history of other malignant neoplasm of large intestine; Z85.07 Personal history of malignant neoplasm of pancreas; Z87.01 Personal history of pneumonia (recurrent); Z90.49 Acquired absence of other specified parts of digestive tract; Z92.21 Personal history of antineoplastic chemotherapy
CPT/HCPCS: 49083; 71020; 71275; 74020; 74176; 74177; 74230; 80048; 80053; 80076; 82140; 82272; 82607; 82746; 82945; 82948; 83540; 83605; 83615 91; 83690; 83986 90; 84157; 84466; 84484; 85025; 85027; 85610; 85730; 86900; 86901; 86920; 87040; 87070; 87205; 88108; 88305; 89051; 92611 GN; 93005; 94799; 97530 GP; 99281; 99285; J1815; J1885; J1940; J2270; J2405; J2543; J7030; J7040; J7050; P9016; S0028

== ENCOUNTER → 2016-08-25 | Outpatient (CLI) | payer OTHER ==
[~2016-08-25] MED LIST changes: +ESCITALOPRAM OX10 MG PO; +FUROSEMIDE20 MG PO; +GABAPENTIN100 MG PO; +GLUCOTROL5 MG PO; +LORAZEPAM0.5 MG PO; +METFORMIN HCL500 M1 PO; +MORPHINE SULFAT15 M1 PO; +NADOLOL20 MG PO; +OMEPRAZOLE40 M1 PO; +ZESTRIL20 MG PO; +ZOFRAN4 MG PO
== END | disposition home or self-care (01) ==
LOC: RAD 12:53
PROC: 0W9G3ZZ Drainage of Peritoneal Cavity, Percutaneous Approach (ICD-10-PCS; principal; 2016-08-25)
DX: C18.1 Malignant neoplasm of appendix (principal); R18.8 Other ascites
CPT/HCPCS: 49083

== ENCOUNTER 2016-08-29 19:48 | Inpatient (IN) | payer OTHER ==
[~2016-08-29] VITALS: Ht 152.4 cm; Wt 51.9 kg
[~2016-08-29 19:48] MED LIST changes: -FUROSEMIDE20 MG PO; -GABAPENTIN100 MG PO; -METFORMIN HCL500 M1 PO; -OMEPRAZOLE40 M1 PO
[2016-08-29 21:48] LABS: HEMATOCRIT 29.8 % (36.0-46.0); MCH 32.8 PG (29.0-34.0); MCHC 32.2 G/DL (30.0-36.0); MCV 101.7 FL (83-99); NRBC (%) 3.2 /100 WBC (0-0); RBC DIS.WIDTH-CV 19.8 % (11.8-14.6); RED BLOOD COUNT 2.93 M/uL (3.80-5.20); WHITE BLOOD COUNT 11.2 K/uL (4.1-10.2)
[2016-08-29 21:54] LABS: CHLORIDE 98 mEq/L (99-109); INTER. NORMALIZED RATIO 1.6; POTASSIUM 4.5 mEq/L (3.7-5.4); PROTHROMBIN TIME 17.9 SEC (10.2-12.9); SODIUM 130 mEq/L (136-147)
[2016-08-29 21:57] LABS: GLUCOSE 41 mg/dL (70-99); PTT 37.5 SEC (25-37)
[2016-08-29 21:58] LABS: ANION GAP 13 MEQ/L (2-14); TOTAL BILIRUBIN 3.2 mg/dL (0.0-1.0)
[2016-08-29 22:00] LABS: ALKALINE PHOSPHATASE 629 IU/L (3-129); GFR ESTIMATE (CALCULATED) > 59 mL/min/
[2016-08-29 22:01] LABS: UREA NITROGEN (BUN) 14 mg/dL (9-23)
[2016-08-29 22:26] LABS: ABS NEUTROPHIL COUNT 8.1; ANISOCYTOSIS 2+; ATYPICAL LYMPHOCYTE 0.9 %; EOSINOPHIL ABS CT 0.2; EOSINOPHILS 1.8 % (0-5.0); INSTRUMENT ABS NEUTROPHIL CT 6.3 K/uL; LYMPHOCYTES 10.6 % (15.0-45.0); MACROCYTES 2+; MEAN PLAT.VOLUME 11.3 uM^3 (9.5-12.4); METAMYELOCYTES 2.6 %; MICROCYTOSIS 1+; MYELOCYTES 6.2 %; NUCLEATED RBC'S 1.8; PLAT.SUFFICIENCY DECREASED; PLATELET COUNT 78 K/uL (156-360); POLYCHROMASIA 1+; SCHISTOCYTES 1+; SEG.NEUTROPHILS 64.6 % (46.0-76.0); TEAR DROP CELLS 1+
[2016-08-29 22:44] LABS: POINT-OF-CARE METER ID UU14100415
[2016-08-29] MEDS ORDERED: MORPHINE SULFAT15 M1 PO (23:19)
[2016-08-29] MEDS ORDERED: LISINOPRIL20 MG PO (23:20)
[2016-08-29] MEDS ORDERED: GLIPIZIDE5 MG PO (23:20)
[2016-08-29] MEDS ORDERED: GABAPENTIN100 MG PO (23:20)
[2016-08-29] MEDS ORDERED: FUROSEMIDE20 MG PO (23:20)
[2016-08-29] MEDS ORDERED: METFORMIN HCL500 M1 PO (23:20)
[2016-08-29] MEDS ORDERED: OMEPRAZOLE40 M1 PO (23:21)
[2016-08-30 00:27] LABS: POINT-OF-CARE METER ID UU14100415
[2016-08-30 03:59] VITALS: BP 93/52
[2016-08-30 08:01] VITALS: BP 99/52
[2016-08-30 11:06] VITALS: BP 92/50
[2016-08-30 20:32] VITALS: BP 111/57
[2016-08-31 04:00] VITALS: BP 101/55
[2016-08-31 05:48] LABS: HEMATOCRIT 24.4 % (36.0-46.0); MCH 33.8 PG (29.0-34.0); MCHC 33.2 G/DL (30.0-36.0); MCV 101.7 FL (83-99); MEAN PLAT.VOLUME 11.3 uM^3 (9.5-12.4); NRBC (%) 4.1 /100 WBC (0-0); PLATELET COUNT 56 K/uL (156-360); RBC DIS.WIDTH-CV 20.2 % (11.8-14.6); RBC DIS.WIDTH-SD 73.7 % (39-53); WHITE BLOOD COUNT 7.8 K/uL (4.1-10.2)
[2016-08-31 06:13] LABS: ANION GAP 5 MEQ/L (2-14); CHLORIDE 104 MEQ/L (99-109); GFR ESTIMATE (CALCULATED) > 59 mL/min/; GLUCOSE 138 mg/dL (70-99); POTASSIUM 4.1 MEQ/L (3.7-5.4); SAMPLE HEMOLYSIS CHECK 0; SAMPLE ICTERIC CHECK 0; SAMPLE LIPEMIA CHECK 0; SODIUM 131 MEQ/L (136-147); UREA NITROGEN (BUN) 14 mg/dL (9-23)
[2016-08-31 06:46] LABS: ABS NEUTROPHIL COUNT 6.2; ANISOCYTOSIS 3+; EOSINOPHIL ABS CT 0.3; EOSINOPHILS 3.6 % (0-5.0); INSTRUMENT ABS NEUTROPHIL CT 4.6 K/uL; LYMPHOCYTES 10.8 % (15.0-45.0); MACROCYTES 3+; METAMYELOCYTES 2.7 %; MYELOCYTES 1.8 %; NUCLEATED RBC'S 4.5; PLAT.SUFFICIENCY DECREASED; POIKILOCYTOSIS 1+; SEG.NEUTROPHILS 79.3 % (46.0-76.0); SMUDGE CELLS 18.9; TEAR DROP CELLS 1+
[2016-08-31 07:25] VITALS: BP 97/50
[2016-08-31 15:25] VITALS: BP 99/56
[2016-08-31 22:41] LABS: POINT-OF-CARE METER ID UU13113725
[2016-09-01 06:40] LABS: HEMATOCRIT 27.3 % (36.0-46.0); MCH 33.7 PG (29.0-34.0); MCHC 32.6 G/DL (30.0-36.0); MCV 103.4 FL (83-99); NRBC (%) 4.5 /100 WBC (0-0); RBC DIS.WIDTH-CV 20.6 % (11.8-14.6); RBC DIS.WIDTH-SD 77.1 % (39-53); RED BLOOD COUNT 2.64 M/uL (3.80-5.20); WHITE BLOOD COUNT 8.1 K/uL (4.1-10.2)
[2016-09-01 07:11] LABS: MEAN PLAT.VOLUME 11.2 uM^3 (9.5-12.4); PLATELET COUNT 52 K/uL (156-360)
[2016-09-01 07:12] LABS: ABS NEUTROPHIL COUNT 6.1; ANISOCYTOSIS 2+; ATYPICAL LYMPHOCYTE 0.9 %; BAND NEUTROPHILS 6.9 % (0-8.0); EOSINOPHIL ABS CT 0.1; EOSINOPHILS 0.9 % (0-5.0); INSTRUMENT ABS NEUTROPHIL CT 4.1 K/uL; LYMPHOCYTES 9.6 % (15.0-45.0); MACROCYTES 2+; METAMYELOCYTES 6.9 %; MYELOCYTES 2.6 %; NUCLEATED RBC'S 2.6; OVALOCYTES 1+; PLAT.SUFFICIENCY DECREASED; POIKILOCYTOSIS 2+; SEG.NEUTROPHILS 68.7 % (46.0-76.0); TEAR DROP CELLS 2+
[2016-09-01 07:13] LABS: ANION GAP 10 MEQ/L (2-14); CHLORIDE 104 MEQ/L (99-109); GFR ESTIMATE (CALCULATED) > 59 mL/min/; GLUCOSE 110 mg/dL (70-99); POTASSIUM 4.4 MEQ/L (3.7-5.4); SAMPLE HEMOLYSIS CHECK 0; SAMPLE ICTERIC CHECK 1; SAMPLE LIPEMIA CHECK 0; SODIUM 132 MEQ/L (136-147); UREA NITROGEN (BUN) 13 mg/dL (9-23)
[2016-09-01 08:51] VITALS: BP 110/55
[2016-09-01 17:41] VITALS: BP 115/58
[2016-09-01] MEDS ORDERED: Chronulac,Cephulac,E PO (20:11)
[2016-09-01] MEDS ORDERED: CONSTULOSE10 GM/15 M PO (20:12)
[2016-09-01] MEDS ORDERED: OXYCODONE HCL5 MG PO (21:36)
[2016-09-01] MEDS ORDERED: MORPHINE SULFAT15 M1 PO (21:36)
== END 2016-09-01 22:09 | disposition home or self-care (01) | DRG 442 ==
LOC: EME 19:48 → EDOF 23:25 → 5EAST 23:25
PROVIDERS: Emergency Medicine; Family Medicine Sports Medicine
PROC: 0W9G3ZZ Drainage of Peritoneal Cavity, Percutaneous Approach (ICD-10-PCS; principal; 2016-09-01)
DX: K72.90 Hepatic failure, unspecified without coma (principal); R18.8 Other ascites; C79.51 Secondary malignant neoplasm of bone; C78.5 Secondary malignant neoplasm of large intestine and rectum; E11.649 Type 2 diabetes mellitus with hypoglycemia without coma; E87.1 Hypo-osmolality and hyponatremia; D69.6 Thrombocytopenia, unspecified; C22.9 Malignant neoplasm of liver, not specified as primary or secondary; G89.3 Neoplasm related pain (acute) (chronic); D63.0 Anemia in neoplastic disease; R63.0 Anorexia; M62.81 Muscle weakness (generalized); K74.60 Unspecified cirrhosis of liver; I10 Essential (primary) hypertension; K21.9 Gastro-esophageal reflux disease without esophagitis; E78.5 Hyperlipidemia, unspecified; F32.9 Major depressive disorder, single episode, unspecified; F41.9 Anxiety disorder, unspecified; E03.9 Hypothyroidism, unspecified; Z87.01 Personal history of pneumonia (recurrent); Z79.84 Long term (current) use of oral hypoglycemic drugs; Z85.038 Personal history of other malignant neoplasm of large intestine; Z85.07 Personal history of malignant neoplasm of pancreas
CPT/HCPCS: 49083; 80048; 80053; 82140; 82948; 85025; 85610; 85730; 99281; 99285; J2405; J7030; J7042

== ENCOUNTER → 2016-09-04 | Outpatient (CLI) | payer OTHER ==
[~2016-09-04] MED LIST changes: +CONSTULOSE10 GM/15 M PO; +Chronulac,Cephulac,E PO; +FUROSEMIDE20 MG PO; +GABAPENTIN100 MG PO; +METFORMIN HCL500 M1 PO; +OMEPRAZOLE40 M1 PO
== END | disposition home or self-care (01) ==
LOC: RAD 08:25
PROC: 0W9G3ZZ Drainage of Peritoneal Cavity, Percutaneous Approach (ICD-10-PCS; principal; 2016-09-04)
DX: C18.1 Malignant neoplasm of appendix (principal); R18.8 Other ascites
CPT/HCPCS: 49083

== ENCOUNTER → 2016-09-11 | Outpatient (CLI) | payer OTHER | END | disposition home or self-care (01) | LOC: RAD 08:15 | PROC: 0W9G3ZZ Drainage of Peritoneal Cavity, Percutaneous Approach (ICD-10-PCS; principal; 2016-09-11) | DX: C18.1 Malignant neoplasm of appendix (principal); R18.8 Other ascites | CPT/HCPCS: 49083 ==

== ENCOUNTER → 2016-09-18 | Outpatient (CLI) | payer OTHER | END | disposition home or self-care (01) | LOC: RAD 08:07 | PROC: 0W9G3ZZ Drainage of Peritoneal Cavity, Percutaneous Approach (ICD-10-PCS; principal; 2016-09-18) | DX: C18.1 Malignant neoplasm of appendix (principal) | CPT/HCPCS: 49083 ==